=== PATIENT | male | born 2005 | race African-American/Black ===

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

== ENCOUNTER 2024-12-12 21:15 | Emergency (ER) | payer SELFPAY ==
[2024-12-12] MEDS ORDERED: SMZ./TMP. 800/160 MG TABLET ONE (22:11)
[2024-12-12] MEDS ORDERED: FLUCONAZOLE 100 MG TAB ONE (22:11)
[2024-12-12] MEDS ORDERED: NYSTATIN 100MU/GM CREAM 15GM TOP ONE (22:12)
[2024-12-12] MEDS ORDERED: DIPHENHYDRAMINE 25 MG TAB/CAP ONE (22:12)
--- NOTE | 2024-12-12 22:14 | EDPHYS ---
Physician Documentation [facility] Name: Aleksandr Bay II Age: 19 yrs Sex: Male : 2005 Arrival Date: 12/12/2024 Time: 21:15 Bed 16 Private MD: ED Physician Khai Curiel HPI: 12/12 21:59 This 19 yrs old Black Male presents to ER via Ambulatory with complaints of Swelling of sunita Lower Extremity, Leg redness/drainage. 21:59 The patient presents with pain, tenderness. The complaints affect the right leg and [facility] left leg. Context: The problem was sustained at an unknown site. Onset: The symptoms/episode began/occurred 1 week(s) ago. Modifying factors: The symptoms are alleviated by elevating leg, remaining still, the symptoms are aggravated by HOT , SCRATCHING. Associated signs and symptoms: The patient has no apparent associated signs or symptoms. Severity of symptoms: At their worst the symptoms were moderate, in the emergency department the symptoms are unchanged. The patient has not experienced similar symptoms in the past. Historical: - Allergies: 21:26 Azithromycin; dd2 21:26 Cipro; dd2 21:26 SHELLFISH; dd2 - PMHx: 21:26 None; dd2 - PSHx: 21:26 None; dd2 - Immunization history:: Adult Immunizations up to date. - Infectious Disease History:: Denies. - Social history:: Smoking status: Patient denies any tobacco usage or history of. - Family history:: not pertinent. ROS: 21:59 Constitutional: Negative for fever, chills, and weight loss, Eyes: Negative for injury, sunita pain, redness, and discharge, ENT: Negative for injury, pain, and discharge, Neck: Negative for injury, pain, and swelling, Cardiovascular: Negative for chest pain, palpitations, and edema, Respiratory: Negative for shortness of breath, cough, wheezing, and pleuritic chest pain, Abdomen/GI: Negative for abdominal pain, nausea, vomiting, diarrhea, and constipation, Back: Negative for injury and pain, : Negative for injury, bleeding, discharge, and swelling, MS/Extremity: Negative for injury and deformity, Neuro: Negative for headache, weakness, numbness, tingling, and seizure, Psych: Negative for depression, anxiety, suicide ideation, homicidal ideation, and hallucinations, Allergy/Immunology: Negative for hives, rash, and allergies, Endocrine: Negative for neck swelling, polydipsia, polyuria, polyphagia, and marked weight changes, Hematologic/Lymphatic: Negative for swollen nodes, abnormal bleeding, and unusual bruising, 21:59 Skin: Positive for Exam: 21:59 Constitutional: This is a well developed, well nourished patient who is awake, alert, sunita and in no acute distress. Head/Face: Normocephalic, atraumatic. Eyes: Pupils equal round and reactive to light, extra-ocular motions intact. Lids and lashes normal. Conjunctiva and sclera are non-icteric and not injected. Cornea within normal limits. Periorbital areas with no swelling, redness, or edema. ENT: Nares patent. No nasal discharge, no septal abnormalities noted. Tympanic membranes are normal and external auditory canals are clear. Oropharynx with no redness, swelling, or masses, exudates, or evidence of obstruction, uvula midline. Mucous membranes moist. Neck: Trachea midline, no thyromegaly or masses palpated, and no cervical lymphadenopathy. Supple, full range of motion without nuchal rigidity, or vertebral point tenderness. No Meningismus. Chest/axilla: Normal chest wall appearance and motion. Nontender with no deformity. No lesions are appreciated. Cardiovascular: Regular rate and rhythm with a normal S1 and S2. No gallops, murmurs, or rubs. Normal PMI, no JVD. No pulse deficits. Respiratory: Lungs have equal breath sounds bilaterally, clear to auscultation and percussion. No rales, rhonchi or wheezes noted. No increased work of breathing, no retractions or nasal flaring. Abdomen/GI: Soft, non-tender, with normal bowel sounds. No distension or tympany. No guarding or rebound. No evidence of tenderness throughout. Back: No spinal tenderness. No costovertebral tenderness. Full range of motion. Male : Normal genitalia with no discharge or lesions. Neuro: Awake and alert, GCS 15, oriented to person, place, time, and situation. Cranial nerves II-XII grossly intact. Motor strength 5/5 in all extremities. Sensory grossly intact. Cerebellar exam normal. Normal gait. Psych: Awake, alert, with orientation to person, place and time. Behavior, mood, and affect are within normal limits. 21:59 Skin: cellulitis, that is minimal, patchy, on the right leg and left leg, on the right leg and left leg, TINEA, Vital Signs: 21:25 BP 123 / 75; Pulse 62; Resp 16; Temp 98.4; Pulse Ox 100% ; Weight 99.79 kg; Height 6 dd2 ft. 2 in. ; Pain 0/10; 21:25 Body Mass Index 28.25 (99.79 kg, 187.96 cm) dd2 21:25 Pain Scale: Adult dd2 MDM: 21:26 Medical Screening Exam initiated sunita 22:02 Differential diagnosis: contusion, abrasion, tendonitis. Data reviewed: vital signs, [facility] nurses notes. Consideration of Admission/Observation Escalation of care including admission/observation considered. I considered the following discharge prescriptions or medication management in the emergency department Medications were administered in the Emergency Department. See MAR. Test considered but Not performed: Labs: NO CBC , CMP. Administered Medications: 22:33 Drug: Fluconazole PO 200 mg PO once Route: PO; jb4 22:34 Follow up: Response: Medication administered at discharge. jb4 22:33 Drug: Trimethoprim-Sulfamethoxazole PO (160 mg-800 mg (DS) 1 tablet PO once Route: PO; jb4 22:34 Follow up: Response: Medication administered at discharge. jb4 22:33 Drug: nystatin Topical Cream 1 application Topical once Route: Topical; Site: affected jb4 area; 22:34 Follow up: Response: Medication administered at discharge. jb4 22:33 Drug: diphenhydrAMINE PO 50 mg PO once Route: PO; jb4 22:34 Follow up: Response: Medication administered at discharge. jb4 Disposition Summary: 12/12/24 22:14 Discharge Ordered Notes: Location: Home sunita Problem: new sunita Symptoms: have improved sunita Condition: Stable sunita Diagnosis - Dermatitis, unspecified sunita - Cellulitis of other sites - BILATERAL ANKLES sunita - Candidiasis of other sites sunita Followup: sunita - With: Private Physician - When: 2 - 3 days - Reason: Recheck today's complaints, Continuance of care, Re-evaluation by your physician Discharge Instructions: - Discharge Summary Sheet sunita - Cellulitis, Adult sunita - Contact Dermatitis sunita - Rash, Adult sunita - Rash, Adult, [id number] sunita Forms: - Medication Reconciliation Form sunita - Antibiotic Education sunita - Prescription Opioid Use sunita - Patient Portal Instructions [facility] - Leadership Thank You Letter [facility] Prescriptions: - Benadryl 25 mg Oral Capsule - take 1 capsule ORAL route every 6 hours As needed; 30 tablet; Refills: 0, [facility] Product Selection Permitted - Fluconazole 200 mg Oral tablet - take 1 tablet ORAL route once daily 1 TAB PO WEEKLY X 3 WEEKS; 3 tablet; sunita Refills: 0, Product Selection Permitted - Nystatin-Triamcinolone 100,000-0.1 unit/g-% Topical cream - apply 1 application TOPICAL route 2 times per day; 30 gram tube; Refills: 0, [facility] Product Selection Permitted - Bactrim DS 800-160 mg Oral Tablet - take 1 tablet ORAL route every 12 hours for 10 days; 20 tablet; Refills: 0, [facility] Product Selection Permitted Signatures: Khai Curiel MD MD cha Bryson, James, RN RN jb4 EVGENY CHANG RN RN dd2
--- NOTE | 2024-12-12 22:14 | ER ---
Nurse's Notes [facility] Name: Aleksandr Bay II Age: 19 yrs Sex: Male : 2005 Arrival Date: 12/12/2024 Time: 21:15 Bed 16 Private MD: Diagnosis: Dermatitis, unspecified;Cellulitis of other sites-BILATERAL ANKLES;Candidiasis of other sites Presentation: 12/12 21:25 Chief complaint: Patient states: "BUMPS ON BOTH ANKLES WITH CLEAR THICK LIQUID COMING dd2 OUT" X 3 DAYS. PT REPORTS ITCHING. Coronavirus screen: At this time, the client does not indicate any symptoms associated with coronavirus-19. Ebola Screen: No symptoms or risks identified at this time. Initial Sepsis Screen: Does the patient meet any 2 criteria? No. Patient's initial sepsis screen is negative. Does the patient have a suspected source of infection? No. Patient's initial sepsis screen is negative. Risk Assessment: Do you want to hurt yourself or someone else? Patient reports no desire to harm self or others. Onset of symptoms was December 09, 2024. 21:25 Method Of Arrival: Ambulatory dd2 21:25 Acuity: MARE 4 dd2 Triage Assessment: 21:26 General: Appears in no apparent distress. Behavior is calm, cooperative, appropriate dd2 for age. Pain: Denies pain. Derm: Rash noted that is draining clear fluid, red, raised, Reports itching. Historical: - Allergies: 21:26 Azithromycin; dd2 21:26 Cipro; dd2 21:26 SHELLFISH; dd2 - PMHx: 21:26 None; dd2 - PSHx: 21:26 None; dd2 - Immunization history:: Adult Immunizations up to date. - Infectious Disease History:: Denies. - Social history:: Smoking status: Patient denies any tobacco usage or history of. - Family history:: not pertinent. Screenin:15 [facility] ED Fall Risk Assessment (Adult) History of falling in the last 3 months, jb4 including since admission No falls in past 3 months (0 pts) Confusion or Disorientation No (0 pts) Intoxicated or Sedated No (0 pts) Impaired Gait No (0 pts) Mobility Assist Device Used No (0 pt) Altered Elimination No (0 pt) Score/Fall Risk Level 0 - 2 = Low Risk Oriented to surroundings, Maintained a safe environment. Abuse screen: Denies threats or abuse. Nutritional screening: No deficits noted. Tuberculosis screening: No symptoms or risk factors identified. Assessment: 22:15 General: Appears in no apparent distress. comfortable, Behavior is calm, cooperative, jb4 appropriate for age. Pain: Denies pain. Neuro: Level of Consciousness is awake, alert, obeys commands, Oriented to person, place, time, situation. Cardiovascular: Patient's skin is warm and dry. Respiratory: Airway is patent Respiratory effort is even, unlabored, Respiratory pattern is regular, symmetrical. Derm: Skin is intact, Skin is pink, warm \\T\\ dry. Musculoskeletal: Circulation, motion, and sensation intact. Range of motion: intact in all extremities. Vital Signs: 21:25 BP 123 / 75; Pulse 62; Resp 16; Temp 98.4; Pulse Ox 100% ; Weight 99.79 kg; Height 6 dd2 ft. 2 in. ; Pain 0/10; 21:25 Body Mass Index 28.25 (99.79 kg, 187.96 cm) dd2 21:25 Pain Scale: Adult dd2 ED Course: 21:19 Patient arrived in ED. jj6 21:26 Khai Curiel MD is Attending Physician. [facility] 21:26 Triage completed. dd2 21:26 Arm band placed on left wrist. dd2 22:15 Patient has correct armband on for positive identification. Bed in low position. Call jb4 light in reach. Side rails up X 1. Provided Education on: plan of care. 22:15 No provider procedures requiring assistance completed. Patient did not have IV access jb4 during this emergency room visit. Administered Medications: 22:33 Drug: Fluconazole PO 200 mg PO once Route: PO; jb4 22:34 Follow up: Response: Medication administered at discharge. jb4 22:33 Drug: Trimethoprim-Sulfamethoxazole PO (160 mg-800 mg (DS) 1 tablet PO once Route: PO; jb4 22:34 Follow up: Response: Medication administered at discharge. jb4 22:33 Drug: nystatin Topical Cream 1 application Topical once Route: Topical; Site: affected jb4 area; 22:34 Follow up: Response: Medication administered at discharge. jb4 22:33 Drug: diphenhydrAMINE PO 50 mg PO once Route: PO; jb4 22:34 Follow up: Response: Medication administered at discharge. jb4 Medication: 22:15 VIS not applicable for this client. jb4 Outcome: 22:14 Discharge ordered by . sunita 22:15 Discharged to home ambulatory, jb4 22:15 Condition: stable 22:15 Discharge instructions given to patient, Instructed on discharge instructions, follow up and referral plans. no drinking with medication, no driving heavy equipment, medication usage, Demonstrated understanding of instructions, follow-up care, medications, Prescriptions given X 4, 22:36 Patient left the ED. jb4 Signatures: Khai Curiel MD MD cha Bryson, James, RN RN jb4 Jeimy Michaelj6 EVGENY CHANG, RN RN dd2
[2024-12-12 23:22] VITALS: BP 123/75; TEMP 98.4; O2SAT 100
== END 2024-12-12 22:36 | disposition home or self-care (01) ==
LOC: ER 21:15
DX: L30.9 Dermatitis, unspecified (principal); L03.116 Cellulitis of left lower limb; L03.115 Cellulitis of right lower limb; B37.89 Other sites of candidiasis
CPT/HCPCS: 99283